=== PATIENT | female | born 1995 | race Caucasian/White ===

== ENCOUNTER 2024-06-04 18:16 | Emergency (ER) | payer OTHER, SELFPAY ==
--- NOTE | ~2024-06-04 | US_ITS ---
CLINICAL HISTORY: pain swelling Venous duplex ultrasound right lower extremity Comparison: None Findings: The visualized deep veins are fully compressible with normal Doppler color flow and spectral tracings. Imaged superficial soft tissues are unremarkable. IMPRESSION: 1. Negative for right lower extremity deep vein thrombosis. This document has been electronically signed by: Rj Garcia MD on 06/04/2024 19:45:46
[2024-06-04 18:41] VITALS: BP 131/73; PULSE 83; RESP 18; TEMP 36.2; O2SAT 100; BMI 31.2
[2024-06-04] MEDS: Ibuprofen 600 MG TABLET PO (18:48)
[2024-06-04 19:47] LABS: MANUAL DIFF FLAG NO
[2024-06-04 19:48] LABS: Basophils Percent Auto 0.5 % (0-2); Eosinophils Percent Auto 0.5 % (0-4); Hematocrit 41.2 % (37.0-47.0); Hemoglobin 14.4 g/dl (12.0-16.0); Imm Gran Abs Auto 0.03 X10*3/uL (0.00-0.03); Imm Gran Pct Auto 0.4 % (0.0-0.4); Lymphocytes Absolute Auto 1.4 X10*3/uL (1.2-4.9); Lymphocytes Percent Auto 16.5 % (20-40); Mean Corpuscular Hemoglobin 28.6 pg (27.0-33.0); Mean Corpuscular Volume 81.9 fL (80.0-98.0); Monocytes Absolute Auto 0.3 X10*3/uL (0.1-1.2); Monocytes Percent Auto 3.6 % (2-11); Neutrophils Absolute Auto 6.5 x10*3/uL (2.0-8.3); Neutrophils Percent Auto 78.5 % (45-73); Platelet Count 184 X10*3/uL (160-400); Red Blood Count 5.03 X10*6/uL (4.20-5.50); Red Cell Distribution Width 12.7 % (11.0-16.0); White Blood Count 8.3 X10*3/uL (4.8-10.8)
--- NOTE | 2024-06-04 20:02 | ED.GENADULT ---
HPI - General Adult General Chief complaint: Extremity Problem Stated complaint: ?blood clot Time Seen by Provider: 06/04/24 19:55 Source: patient Limitations: no limitations History of Present Illness ED Provider: Stephanie García PA-C HPI narrative: 28-year-old female presents with right posterior knee pain x2 days. Denies trauma, overuse injury, heavy lifting or new exercise that could have precipitated her symptoms. Denies unilateral calf pain or swelling. Patient was wearing old sneakers. Patient was seen at urgent Care, she was sent here to rule out the presence of a DVT. Related Data Allergies Allergy/AdvReac Type Severity Reaction Status Date / Time amoxicillin [Augmentin] Allergy Unknown Unknown Verified 06/04/24 18:44 clavulanic acid [Augmentin] Allergy Unknown Unknown Verified 06/04/24 18:44 penicillin G Allergy Unknown Unknown Verified 06/04/24 18:44 phenazopyridine Allergy Unknown Unknown Verified 06/04/24 18:44 prochlorperazine Allergy Unknown Unknown Verified 06/04/24 18:44 topiramate Allergy Unknown Unknown Verified 06/04/24 18:44 Antihistamine Allergy Unknown Unknown Uncoded 06/04/24 18:44 Cefazolin Sodium Allergy Unknown Unknown Uncoded 06/04/24 18:44 Decongestant Allergy Unknown Unknown Uncoded 06/04/24 18:44 Nitrofurazone Allergy Unknown Unknown Uncoded 06/04/24 18:44 Physical Exam ED Vital Signs: Vital Signs - 24 hr 06/04/24 18:41 Temperature 97.2 F Pulse Rate 83 Respiratory Rate 18 Blood Pressure 131/73 Pulse Oximetry 100 Oxygen Delivery Method Room Air BMI result Body Mass Index 31.2 Medications Administered Discontinued Medications Generic Name Dose Route Start Last Admin Trade Name Freq PRN Reason Stop Dose Admin Ibuprofen 600 mg 06/04/24 18:45 06/04/24 18:48 Ibuprofen 600 Mg Tablet PO 06/04/24 18:46 600 mg ONCE ONE Administration Medical Decision Making Medical Decision Making [facility] Narrative: 28-year-old female presents with right posterior knee pain x2 days. Denies trauma, overuse injury, heavy lifting or new exercise that could have precipitated her symptoms. Denies unilateral calf pain or swelling. Patient was wearing old sneakers. Patient was seen at urgent Care, she was sent here to rule out the presence of a DVT. No chronic issues History: Per patient I have considered the following differential diagnoses: DVT, King cyst, arthritis, sprain, fracture, dislocation, cellulitis, septic joint Plan: I have independently reviewed the following tests: DVT study right lower extremity:IMPRESSION: 1. Negative for right lower extremity deep vein thrombosis. Lab Data 06/04/24 19:41 06/04/24 19:40 Labs: Lab Results 06/04/24 Range/Units 19:41 WBC 8.3 (4.8-10.8) X10*3/uL RBC 5.03 (4.20-5.50) X10*6/uL Hgb 14.4 (12.0-16.0) g/dl Hct 41.2 (37.0-47.0) % MCV 81.9 (80.0-98.0) fL MCH 28.6 (27.0-33.0) pg MCHC 35.0 (31.0-35.0) g/dl RDW 12.7 (11.0-16.0) % Plt Count 184 (160-400) X10*3/uL MPV 11.0 (9.4-12.3) fL Immature Gran % (Auto) 0.4 (0.0-0.4) % Neut % (Auto) 78.5 H (45-73) % Lymph % (Auto) 16.5 L (20-40) % [place] % (Auto) 3.6 (2-11) % Eos % (Auto) 0.5 (0-4) % Baso % (Auto) 0.5 (0-2) % Lymph # (Auto) 1.4 (1.2-4.9) X10*3/uL [place] # (Auto) 0.3 (0.1-1.2) X10*3/uL Eos # (Auto) 0.0 (0.0-0.4) X10*3/uL Baso # (Auto) 0.0 (0.0-0.2) X10*3/uL Abs Immat Gran (auto) 0.03 (0.00-0.03) X10*3/uL Absolute Neuts (auto) 6.5 (2.0-8.3) x10*3/uL Absolute Nucleated RBC 0.000 (0.0-0.012) X10*3/uL Nucleated RBC % (auto) 0.0 (0.0-0.2) /100WBC Discharge Plan Discharge Clinical Impression: Posterior right knee pain Patient Disposition: Home, Self-Care Instructions: Knee Pain (ED), R.I.C.E. Treatment (ED) Additional Instructions: There were no abnormalities noted on the ultrasound of your right lower extremity, there was no clot, there was no King cyst. See home care instructions. As we discussed, I would purchase a compression sleeve, to support the knee joint. I would also purchase new shoes, I will go to a running store, they can fit you for the most suitable shoe. You can use [id number] ibuprofen 600 mg taken every 6 hours with food, alternated with [id number] Tylenol 1000 mg taken every 8 hours, for your pain. Ice the area several times a day. While resting elevate the leg. If your symptoms persist, follow up with your primary care provider, you may require orthopedic consult at that time. Stand Alone Forms: Work/School Release Print Language: Irish
[2024-06-04 20:07] LABS: Alanine Aminotransferase 22 U/L (0-31); Albumin Level 4.8 g/dL (3.5-5.0); Alkaline Phosphatase 64 U/L (39-117); Anion Gap 11 (12-20); Aspartate Amino Transferase 23 U/L (5-31); Bilirubin Total 0.9 mg/dL (0.0-1.0); Blood Urea Nitrogen 12 mg/dL (9-16); Calcium 9.4 mg/dL (8.4-10.2); Carbon Dioxide 24 mmol/L (22-29); Chloride 107 mmol/L (96-108); Estimated Glomerular Filt Rate > 60; Glucose Random 116 mg/dL (60-115); Magnesium 2.2 mg/dL (1.6-2.6); Potassium 3.7 mmol/L (3.3-5.1); Sodium 138 mmol/L (135-145); Total Protein 7.9 g/dL (6.5-8.0)
[2024-06-04 20:10] LABS: HCG Quantitative < 2 mIU/mL
== END 2024-06-04 20:15 | disposition home or self-care (01) ==
PROVIDERS: Physician Assistant Medical; Emergency Provider Emergency Medicine
DX: M25.561 Pain in right knee (principal); R60.0 Localized edema
CPT/HCPCS: 36415; 80053; 83735; 84702; 85025; 93971; 99282; 99284

== ENCOUNTER → 2024-06-04 18:42 | Outpatient (BNV) | payer OTHER, SELFPAY | PROVIDERS: PCP Nurse Practitioner Adult Health; Visit Provider Radiology Neuroradiology | DX: R22.41 Localized swelling, mass and lump, right lower limb (principal) | CPT/HCPCS: 93971 ==